=== PATIENT | male | born 1990 | race American Indian/Alaskan Native ===

== ENCOUNTER 2016-11-16 11:14 | Emergency (ER) | payer SELFPAY ==
[2016-11-16 11:22] VITALS: BP 114/71; PULSE 89; RESP 19; TEMP 98.5; O2SAT 98; BMI 20.5
[2016-11-16] MEDS ORDERED: Piperacillin/Tazobact 3.375 GM in Sodium Chloride 0.9% 100 ML IVPB STA (12:12)
[2016-11-16 12:44] LABS: EOS # 0.3 K/uL (0.0-0.7); HEMOGLOBIN 13.3 g/dL (12.0-18.0); LYMPH # 0.5 K/uL (1.0-4.3); NEUT # 0.4 K/uL (1.8-7.0)
--- NOTE | 2016-11-16 12:46 | RAD ---
PROCEDURE: Right Foot Radiographs. HISTORY: possible FB COMPARISON: None. FINDINGS: BONES: No evident fracture. JOINTS: Normal. SOFT TISSUES: Foreign body marked on accompanying study for review plantar aspect of the foot medially at the level of the 2nd metatarsal phalangeal joint. OTHER FINDINGS: None. IMPRESSION: Positive examination for linear foreign body plantar aspect of the right foot marked on the study for review.
--- NOTE | 2016-11-16 12:51 | ED PDOC ---
HPI: General Adult Time Seen by Provider: 11/16/16 11:33 Chief Complaint (Nursing): Wound Check History Per: Patient Additional Complaint(s): Pt. states on Sunday he was playing basketball outside but only with socks on when he accidentally stepped on a foreign object with his R foot. Pt is uncertain as to what the object may have been. Pt. states he was seen in [place] ED where he was found to have a FB in the R foot. 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 Reports that he was prescribed an antibiotic which he has yet to fill. Denies fever, new trauma, discharge, numbness, tingling. Against Medical Advice - AMA Patient Left Against Medical Advice: The patient declines admission to the hospital and wishes to leave the Emergency Department. This action is against my medical advice. This decision was made with informed refusal. The patient was told that admission to the hospital is necessary. Explanation of the reasons why were discussed. The risks of leaving were explained to the patient and include, but are not limited to, worsening of known or currently unknown conditions, permanent disability and from undiagnosed or untreated conditions. The patient has the capacity to make this informed decision and understands my explanation of the current medical problem and risks of leaving. The patient voluntarily accepts these risks and signed an AMA form documenting our conversation. The patient was given the opportunity to ask questions and reconsider. The patient was encouraged to return to the Emergency Department at any time for further care. Past Medical History Reviewed: Historical Data, Nursing Documentation, Vital Signs Vital Signs: Last Vital Signs Temp 98.5 F 11/16/16 11:21 Pulse 89 11/16/16 11:21 Resp 19 11/16/16 11:21 BP 114/71 11/16/16 11:21 Pulse Ox 98 11/16/16 16:17 - Family History Family History: States: No Known Family Hx - Home Medications Home Medications: Ambulatory Orders Medication Instructions Recorded Ibuprofen [Motrin Tab] 600 mg PO QID PRN #30 tab 11/13/16 Bacitracin Ointment [Bacitracin] 1 appful TOP BID #15 g 11/14/16 Cephalexin [cephalexin] 500 mg PO QID #40 cap 11/14/16 - Allergies Allergies/Adverse Reactions: Allergies Allergy/AdvReac Type Severity Reaction Status Date / Time No Known Allergies Allergy Verified 11/16/16 11:30 Review of Systems ROS Statement: Except As Marked, All Systems Reviewed And Found Negative Musculoskeletal: Positive for: Foot Pain Physical Exam - Reviewed Nursing Documentation Reviewed: Yes Vital Signs Reviewed: Yes - Physical Exam Appears: Positive for: Well, Non-toxic, No Acute Distress Head Exam: Positive for: ATRAUMATIC, NORMAL INSPECTION, NORMOCEPHALIC Skin: Positive for: Normal Color, Warm. Negative for: Rash Eye Exam: Positive for: EOMI, Normal appearance, PERRL ENT: Positive for: Normal ENT Inspection Neck: Positive for: Normal, Painless ROM Cardiovascular/Chest: Positive for: Regular Rate, Rhythm Respiratory: Positive for: CNT, Normal Breath Sounds Pulses-Dorsalis Pedis (L): 2+ Pulses-Dorsalis Pedis (R): 2+ Gastrointestinal/Abdominal: Positive for: Normal Exam, Bowel Sounds, Soft Back: Positive for: Normal Inspection Extremity: Positive for: Normal ROM, Other (R foot: plantar surface with sutured wound over 2nd MTP without discharge or surrounding erythema, dorsal surface with warmth and erythema and mild edema) Neurologic/Psych: Positive for: Alert, Oriented - Laboratory Results Result Diagrams: 11/16/16 12:30 11/16/16 13:10 - ECG O2 Sat by Pulse Oximetry: 98 - Progress ED Course And Treament: Labs ordered. Zosyn IV, Vancomycin IV given. Foot x-ray ordered. Pt. evaluated by Latonya, podiatry resident, and arrangements made for outpt OR removal tomorrow. WBC 1.9. Pt. is also neutropenic. As per pt. was informed by his PMD, that his WBC is "on the low side." He was evaluated by an Infectious Disease doctor who told him that he was "ok" and that he did not have HIV. Also reports during that time was diagnosed with pneumonia several times. Disposition - Clinical Impression Clinical Impression: Foreign body in foot, Cellulitis, Neutropenia, Left against medical advice - Patient ED Disposition Is Patient to be Admitted: No - Disposition Referrals: [facility] [Outside] Disposition: Against Medical Advice Disposition Time: 15:54 Condition: STABLE Instructions: Soft Tissue Foreign Body (ED), Cellulitis (ED), Neutropenia (ED) , Against Medical Advice (ED) Print Language: ROMANIAN
[2016-11-16 12:55] LABS: EOS % 16.9 % (0.0-4.0); LYMPH % 25.8 % (20.0-40.0); MEAN CELL VOLUME 86.4 fl (80.0-94.0); MEAN CORPUSCULAR HEMOGLOBIN 28.6 pg (27.0-31.0); MEAN CORPUSCULAR HGB CONC 33.1 g/dL (33.0-37.0); MONO # 0.6 K/uL (0.0-0.8); MONO % 33.7 % (0.0-10.0); NEUT % 21.6 % (50.0-75.0); NRBC % 0.6 % (0.0-0.0); PLATELET COUNT 277 K/uL (130-400); RBC 4.65 Mil/uL (4.40-5.90); RED CELL DISTRIBUTION WIDTH 12.9 % (11.5-14.5)
[2016-11-16 12:59] LABS: WHITE BLOOD COUNT 1.9 K/uL (4.8-10.8)
[2016-11-16] MEDS ORDERED: Piperacillin/Tazobact 3.375 gm Inj IVPB ONE (13:14)
[2016-11-16] MEDS ORDERED: Vancomycin 1 g Inj ONE (13:14)
[2016-11-16 13:51] LABS: ALB/GLOB RATIO 1.2 (1.0-2.1); ALBUMIN 4.5 g/dL (3.5-5.0); ALT/SGPT 30 U/L (21-72); AST/SGOT 23 U/L (17-59); BLOOD UREA NITROGEN 10 mg/dl (9-20); CALCIUM 9.5 mg/dL (8.4-10.2); GFR AFRICAN-AMERICAN > 60; GFR NON-AFRICAN AMERICAN > 60
[2016-11-16 14:48] LABS: ANISOCYTOSIS SLIGHT; BANDS 3 % (0-2); BASOPHIL 2 % (0-2); EOSINOPHIL 14 % (0-7); LYMPHOCYTE 19 % (20-50); MICROCYTOSIS SLIGHT; MONOCYTE 28 % (0-10); NEUTROPHIL 29 % (42-75); PLATELET ESTIMATE NORMAL (NORMAL); REACTIVE LYMPHOCYTES 5 % (0-0); TOTAL CELLS COUNTED 100
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
[2016-11-16 14:49] LABS: LARGE PLATELETS PRESENT; TEARDROP CELLS SLIGHT
== END 2016-11-16 16:00 | disposition left against medical advice (07) ==
LOC: H.ER 11:14
DX: S90.859A Superficial foreign body, unspecified foot, initial encounter (principal); Y93.67 Activity, basketball; D70.9 Neutropenia, unspecified; L03.115 Cellulitis of right lower limb
CPT/HCPCS: 73630; 80053; 85025; 87040; 96365; 96366; 96367; 99281; J2543